=== PATIENT | male | born 1965 | race Caucasian/White ===

== ENCOUNTER → 2017-10-20 08:17 | Outpatient (CLI) | payer MEDICAID, SELFPAY ==
[2017-10-20 10:35] LABS: Anion Gap 12 (5-15); BUN 19 mg/dL (7-18); BUN/Creat Ratio 18.3 RATIO (10-20); Calcium,Total 8.9 mg/dL (8.5-10.1); Chloride 104 mmol/L (98-107); Cholesterol 177 mg/dL (200); Creatinine, Serum 1.04 mg/dL (0.70-1.30); EST Glomerular Filtration Rate 79 mL/min (>60); Est Glom Filt Rate - Afr Amer 95 mL/min (>60); Glucose 90 mg/dL (74-106); High Density Lipoprotein 30 mg/dL; Potassium 4.1 mmol/L (3.5-5.1); Sodium Level 141 mmol/L (136-145); Triglycerides 130 mg/dL
[2017-10-20 10:36] LABS: PSA,Total - Annual Screen 1.17 ng/mL (0.00-4.00); T4 Free Direct 0.77 ng/dL (0.76-1.46); Very Low Density Lipoprotein 26 mg/dL (5-40)
== END ==
DX: E78.5 Hyperlipidemia, unspecified (principal); M12.80 Other specific arthropathies, not elsewhere classified, unspecified site; I10 Essential (primary) hypertension; E03.9 Hypothyroidism, unspecified; Z12.5 Encounter for screening for malignant neoplasm of prostate
CPT/HCPCS: 36415; 80048; 80061; 84153; 84439; 84550; G0103

== ENCOUNTER 2019-04-13 12:09 | Emergency (ER) | payer OTHER, BC, SELFPAY ==
[2019-04-13 12:10] VITALS: BP 157/98; PULSE 92; RESP 16; TEMP 35.9; O2SAT 98; BMI 30.5
--- NOTE | 2019-04-13 12:26 | ED.RN ---
PER [facility] [employer], PT IS ONLY A TEST IF EMPLOYER REQUESTS. CALL PLACED TO [email or web address] [phone] AND THEY WILL CALL BACK TO LET ER KNOW IF PT NEEDS A TEST
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
--- NOTE | 2019-04-13 12:53 | RAD_ITS ---
STUDY: X-RAY - LEFT SHOULDER REASON FOR EXAM: Male, 54 years old. SHOULDER INJURY YESTERDAY. LIMITED RANGE OF MOTION. TECHNIQUE: 4 view(s) of the shoulder. COMPARISON: None. FINDINGS: Normal glenohumeral articulation. There is degenerative arthrosis of the acromioclavicular joint without inferior osseous spur formation. Normal acromion. Normal humeral head and visualized proximal humerus. The soft tissue structures are unremarkable. Normal visualized pulmonary apex. RAD/Shoulder min 2 Views IMPRESSION: Degenerative changes of the acromioclavicular joint. Electronically Signed: Bj Leon, at 13:28 EST , Service support ,
--- NOTE | 2019-04-13 13:08 | ED.RN ---
ALEXIA CRUZ FROM [facility] CALLED BACK AND STATED THAT THEY DO NOT WANT A DRUG SCREEN.
== END 2019-04-13 13:59 | disposition home or self-care (01) ==
PROVIDERS: Emergency Provider Emergency Medicine; PCP Family Medicine
DX: S43.402A Unspecified sprain of left shoulder joint, initial encounter (principal); M19.012 Primary osteoarthritis, left shoulder; W22.8XXA Striking against or struck by other objects, initial encounter; Y93.89 Activity, other specified; Y92.89 Other specified places as the place of occurrence of the external cause; Y99.0 Civilian activity done for income or pay
CPT/HCPCS: 73030; 99282

== ENCOUNTER → 2019-04-29 12:07 | Outpatient (CLI) | payer OTHER, SELFPAY ==
[2019-04-16 08:55] VITALS: BMI 30.5
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
== END ==
PROVIDERS: PCP Family Medicine; Referring Provider Physician Assistant Surgical; Visit Provider Physician Assistant Surgical
DX: S46.912A Strain of unspecified muscle, fascia and tendon at shoulder and upper arm level, left arm, initial encounter (principal)
CPT/HCPCS: 72141; 73221

== ENCOUNTER → 2019-05-14 11:03 | Outpatient (CLI) | payer OTHER, SELFPAY ==
[2019-05-14 07:59] VITALS: BMI 30.5
--- NOTE | 2019-05-14 11:15 | RAD_ITS ---
STUDY: X-RAY - CERVICAL SPINE REASON FOR EXAM: Male, 54 years old. Cervical radiculopathy, left shoulder pain TECHNIQUE: 5 view(s) of the cervical spine were obtained. COMPARISON: None FINDINGS: Normal anterior atlantoaxial articulation. Normal odontoid process. There is straightening of the normal cervical lordosis. There is multi-level endplate spondylosis. There is multi-level degenerative disc disease with multilevel disc space narrowing. There is multi-level osseous foraminal stenosis. There are 5 calcifications/ossifications of the posterior neck that could represent prior soft tissue injury. RAD/Cerv Spine 4 or 5 Views IMPRESSION: Degenerative disc disease with bilateral foraminal stenosis, left more than right (lower level dominant). Electronically Signed: Kaveh Garcia MD ([place]) at 17:04 EDT , Service support ,
== END ==
PROVIDERS: PCP Family Medicine
DX: M54.12 Radiculopathy, cervical region (principal)
CPT/HCPCS: 72050

== ENCOUNTER 2019-06-18 08:00 | Outpatient (RCR) | payer OTHER, SELFPAY ==
[2019-05-14 07:59] VITALS: BMI 30.5
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
--- NOTE | 2019-06-18 08:56 | HP.PTREVAL_ITS ---
Angel Jara, DO, It has been my pleasure to treat KURT BOSE over the last 13 visits for bulging of cervical intervertebral disc, L shoulder strain. Please see the progress note below for an update on the physical therapy plan of care! Subjective: Pt is not working. He is still in a lot of pain that comes and goes and it can go up to a 10/10. He did not have anti-inflamm or muscle relaxors for about a week now. He is now better than when he first came in but still has pain in neck and shoulder area and numbness down the arm. Most exercises inc rease the numbness in the hand. He wakes up every 2 hours in pain and can not lay flat as his pain increases. Objective/Function: C-spine AROM: flexion 25%, ext 15%, Rot R 25% and Rot L 15%, SB B 5%. L shoulder flexion and abduction approx 40 degrees. Pt physical exam reveals minimal results but subjective 25-50% improvement. Plan Plan: Hold chart.... Pt C-9 expires today. He will go back to MD and see what the next step is. Goals Goal 1:: I HEP Goal Time Frame: 4-6 Weeks Goal Progress: Progressing Goal 2:: Increase c-spine AROM by 25% each plane ( at time of eval: C-spine AROM: flexion 10%, ext 5%, Rot B 10%, SB B 5%) Goal Time Frame: 4-6 Weeks Goal Progress: Not Progressing Goal 3:: Increase R shoulder AROM on the L to 120 degrees elevation (at time of eval: L shoulder AROM: flex 71 degrees, abd 40 degrees, ER 27 degrees, IR to greater trochanter). Goal Time Frame: 4-6 Weeks Goal Progress: Not Progressing Goal 4:: Decrease L arm and shoulder pain and c-spine pain tp 3/10 with ADL's Goal Time Frame: 4-6 Weeks Goal Progress: Goal Met Anticipated Interventions Patient/Client Instruction: Educate patient on: Condition, Plan of Care For the Purpose of:: To decrease pain, To decrease swelling/inflammation, To increase ROM, To improve nutrient delivery to tissue, To improve muscle performance and motor function, To improve ability to perform ADL's, To increase tolerance to activity/condition/position, To improve performance and independence with ADL's, To improve ability of physical actions for home/community/work/leisure, To improve health of tissue, To decrease soft tissue restriction, To increase flexibility/ROM Therapeutic Exercise to Include: Strength training, Postural training, Flexibilty training, Passive ROM, Active ROM, Ramiro Exercises, Scapular Strength/Stabilization For the Purpose of:: To decrease pain, To decrease swelling/inflammation, To improve nutrient delivery to tissue, To improve muscle performance and motor function, To improve ability to perform ADL's, To increase tolerance to activity/condition/position, To improve ability of physical actions for home/community/work/leisure, To improve health of tissue, To decrease soft tissue restriction, To increase flexibility/ROM Manual Therapy Techniques to Include: Passive ROM, Soft tissue mobilization For the Purpose of:: To decrease pain, To decrease swelling/inflammation, To increase ROM, To improve nutrient delivery to tissue, To improve muscle performance and motor function, To improve ability to perform ADL's, To improve health of tissue, To increase flexibility/ROM IF ES: Yes Thermo therapy (hot pack): Yes Ultrasound (thermal/non thermal): Yes For the Purpose of:: To decrease pain, To increase ROM, To improve nutrient delivery to tissue, To improve muscle performance and motor function, To improve health of tissue, To decrease soft tissue restriction Please do not hesitate to contact me at [phone] by phone or Fax: if you have questions or concerns regarding this new plan of care! Sincerely, NADER Patel
--- NOTE | 2019-06-18 09:07 | HP.PTDCSUM ---
It has been my pleasure to treat KURT BOSE referred by Angel Jara DO, with the diagnosis of bulging of cervical intervertebral disc, L shoulder strain for a total of 13 visit(s). Discharge Date: 06/18/19 Please see the following information for a summary of their discharge status. Subjective: Pt is not working. He is still in a lot of pain that comes and goes and it can go up to a 10/10. He did not have anti-inflamm or muscle relaxors for about a week now. He is now better than when he first came in but still has pain in neck and shoulder area and numbness down the arm. Most exercises increase the numbness in the hand. He wakes up every 2 hours in pain and can not lay flat as his pain increases. Neck pain Pain Intensity (Out of 10): 3 L shoulder pain Pain Intensity (Out of 10): 3 % Improvement: 50 Objective/Function: C-spine AROM: flexion 25%, ext 15%, Rot R 25% and Rot L 15%, SB B 5%. L shoulder flexion and abduction approx 40 degrees. Pt physical exam reveals minimal results but subjective 25-50% improvement. Goal 1:: I HEP Goal Progress: Progressing Goal 2:: Increase c-spine AROM by 25% each plane ( at time of eval: C-spine AROM: flexion 10%, ext 5%, Rot B 10%, SB B 5%) Goal Progress: Not Progressing Goal 3:: Increase R shoulder AROM on the L to 120 degrees elevation (at time of eval: L shoulder AROM: flex 71 degrees, abd 40 degrees, ER 27 degrees, IR to greater trochanter). Goal Progress: Not Progressing Goal 4:: Decrease L arm and shoulder pain and c-spine pain tp 3/10 with ADL's Goal Progress: Goal Met Plan: DC PT.... Pt C-9 expires today. He will go back to spine surgeon and see what the next step is. Discharge Comments: DC PT back to surgeon for further assessment If there are questions or concerns regarding this patient's physical therapy, please feel free to call me at [phone]. Thank you for the referral of this patient. Sincerely, Char Rudolph, MPT
== END 2019-06-18 19:00 | disposition home or self-care (01) ==
LOC: PT 08:00
PROVIDERS: PCP Family Medicine; Referring Provider Orthopaedic Surgery; Visit Provider Orthopaedic Surgery
DX: M50.20 Other cervical disc displacement, unspecified cervical region (principal); S46.912D Strain of unspecified muscle, fascia and tendon at shoulder and upper arm level, left arm, subsequent encounter
CPT/HCPCS: 97014; 97035; 97110; 97140; 97162; G0283